=== PATIENT | male | born 1965 | race Caucasian/White ===

== ENCOUNTER 2016-11-19 01:27 | Emergency (ER) | payer BC, OTHER ==
[2016-11-19] MEDS ORDERED: ASPIRIN 81 MG CHEW TABLET As Ordered ONE (01:50)
[2016-11-19] MEDS ORDERED: MORPHINE 4 MG/ML 1ML SYRINGE As Ordered ONE (02:01)
[2016-11-19] MEDS ORDERED: METOPROLOL TART 25 MG TABLET As Ordered ONE (02:01)
[2016-11-19 02:05] LABS: INR 0.94
[2016-11-19 02:08] LABS: BASO % 0.2 % (0.0-1.0); EOS # 0.1 K/mm3 (0.0-0.50); EOS % 2.5 % (0.0-3.0); LARGE UNSTAINED CELL # 0.1 K/mm3 (0.0-0.4); LARGE UNSTAINED CELL % 1.9 % (0.0-4.0); LYMPH # 1.3 K/mm3 (1.5-4.5); LYMPH % 22.3 % (24.0-44.0); MEAN CORPUSCULAR HEMOGLOBIN 27.2 pg (27.0-33.0); MEAN CORPUSCULAR HGB CONC 33.9 g/dl (32.0-36.5); MEAN CORPUSCULAR VOLUME 80.2 fl (80.0-96.0); MONO # 0.3 K/mm3 (0.0-0.8); NEUTROPHILS # 3.9 K/mm3 (1.8-7.7); PLATELET COUNT, AUTOMATED 230 k/mm3 (150-450); RED CELL DISTRIBUTION WIDTH 13.3 % (11.5-14.5); WHITE BLOOD COUNT 5.7 K/mm3 (4.0-10.0)
[2016-11-19 02:13] LABS: ANION GAP 10 MEQ/L (8-16); BLOOD UREA NITROGEN 15 MG/DL (7-18); CALCIUM LEVEL 8.7 MG/DL (8.5-10.1); CARBON DIOXIDE LEVEL 28 MEQ/L (21-32); CHLORIDE LEVEL 102 MEQ/L (98-107); GLOMERULAR FILTRATION RATE > 60.0 (>56); GLUCOSE, FASTING 337 MG/DL (70-105); POTASSIUM SERUM 4.2 MEQ/L (3.5-5.1); SODIUM LEVEL 140 MEQ/L (136-145)
[2016-11-19] MEDS ORDERED: HEPARIN SOD (PORCINE) 5000 UNITS/ML VIAL As Ordered ONE (02:51)
[2016-11-19] MEDS ORDERED: HEPARIN 25,000 UNITS/250 ML D5W BAG (100 UNITS/ML) As Ordered ONE (02:52)
[2016-11-19] MEDS ORDERED: CLOPIDOGREL 300 MG TAB (PLAVIX) As Ordered ONE (02:52)
[2016-11-19] MEDS ORDERED: NITROGLYCERIN 2% OINT 1 GM *U/D* PKT As Ordered ONE (03:09)
--- NOTE | 2016-11-19 03:48 | EDDOCDS ---
Nurse's Notes [facility] Name: Holger Levine Age: 51 yrs Sex: Male : 1965 Arrival Date: 11/19/2016 Time: 01:27 Bed 2 Private MD: Diagnosis: Non-ST elevation (NSTEMI) myocardial infarction Presentation: 11/19 01:31 Presenting complaint: Patient states: Has been experiencing midsternal chest pain for a kmg1 couple of weeks. Became worse yesterday and has not really let up. Aspirin was not taken prior to arrival. Suicide/Homicide risk assessment- the patient denies having any suicidal and/or homicidal ideations and does not present with any other emotional, behavioral or mental health complaints. 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 Transition of care: patient was not received from another setting of care. 01:31 Acuity: EDWARD Level 2 km 01:31 Method Of Arrival: Walkin/Carried/[place] [facility] [place] 03:47 Adult Sepsis Screening: The patient does not have new or worsening altered mentation. af2 Patient's respiratory rate is less than 22. Systolic blood pressure is greater than 100. Patient has a qSOFA score of 0- Negative Sepsis Screen. Triage Assessment: 01:35 General: Appears in no apparent distress, comfortable, Behavior is appropriate for age, kmg1 cooperative, pleasant. Pain: Location: mid-sternal area Pain currently is 6 out of 10 on a pain scale. Quality of pain is described as burning. Cardiovascular: Rhythm is sinus rhythm No ectopy. Chest pain is described as Pain is 6 out of 10 on a pain scale. quality is burning, is located in substernal area radiates to right episodes are continuous began weeks. Respiratory: Airway is patent Respiratory effort is even, unlabored, Respiratory pattern is regular, symmetrical. 03:47 Pt Declines HIV testing. af2 Historical: - Allergies: No known drug Allergies; - Home Meds: 1. Aleve 220 mg Oral tab 1 tab every 12 hours (Last dose: 11/18/2016 20:00) 2. Tums Oral 1 tab as needed (Last dose: 11/18/2016 23:30) - PMHx: none; - PSHx: Appendectomy; - Social history: Smoking status: Patient states former smoker of tobacco. No barriers to communication noted, The patient speaks fluent Arabic, Speaks appropriately for age. - Family history: Not pertinent. - : The pt / caregiver states he / she is not on anticoagulants. Home medication list is obtained from the patient. - Exposure Risk Screening:: None identified. Screenin:48 Screening information is obtained from the patient. Fall risk: No risks identified. af2 Assistance ADL's: requires no assistance with activities of daily living. Abuse/DV Screen: The patient / caregiver reports he/she is: not in a situation that causes fear, pain or injury. Nutritional screening: No deficits noted. Advance Directives: Currently, there is no health care proxy. home support is adequate. Assessment: 01:47 General: Appears in no apparent distress, comfortable, Behavior is appropriate for age, af2 cooperative. Neurological: Level of Consciousness is awake, alert, obeys commands. Cardiovascular: Capillary refill < 3 seconds in bilateral fingers Heart tones S1 S2 present Rhythm is sinus rhythm No ectopy. Respiratory: Airway is patent Respiratory effort is even, unlabored, Reports no respiratory complaints. Derm: Skin is intact, is healthy with good turgor, Skin is normal. 02:45 General: Appears in no apparent distress, comfortable, Behavior is appropriate for age, af2 cooperative, pt reports pain free at this time. . Neurological: Level of Consciousness is awake, alert, obeys commands, Oriented to person, place, time. Cardiovascular: Rhythm is sinus rhythm No ectopy. Respiratory: Airway is patent Respiratory effort is even, unlabored. Derm: Skin is intact, is healthy with good turgor, Skin is normal. 03:45 General: Appears in no apparent distress, comfortable, Behavior is appropriate for age, af2 cooperative. Neurological: Level of Consciousness is awake, alert, obeys commands, Oriented to person, place, time. Cardiovascular: Capillary refill < 3 seconds in bilateral fingers Heart tones S1 S2 present Rhythm is sinus rhythm No ectopy. Respiratory: Airway is patent Respiratory effort is even, unlabored. Derm: Skin is intact, is healthy with good turgor, Skin is normal. Vital Signs: 01:33 BP 153 / 93 (auto/); af2 01:35 BP 153 / 93; Pulse 81; Resp 18; Pulse Ox 98% on R/A; Weight 131.54 kg (R); Height 6 ft. kmg1 0 in. (182.88 cm) (R); Pain 6/10; 01:37 Pulse 81 MON; Pulse Ox 97% ; af2 02:00 BP 135 / 84 (auto/); af2 02:01 Pulse 80 MON; Resp 18 S; Pulse Ox 93% on R/A; af2 02:15 BP 137 / 91 (auto/); af2 02:16 Pulse 77 MON; Resp 18 S; Pulse Ox 98% on 2 lpm NC; af2 02:30 BP 145 / 91 (auto/); af2 02:31 Pulse 76 MON; Resp 18 S; Pulse Ox 98% on 2 lpm NC; af2 02:45 BP 138 / 82 (auto/); af2 02:46 Pulse 76 MON; Resp 18 S; Pulse Ox 98% on 2 lpm NC; af2 02:51 BP 141 / 86 (auto/); af2 02:52 Pulse 76 MON; Resp 18 S; Pulse Ox 96% on 2 lpm NC; af2 03:00 BP 144 / 92 (auto/); af2 03:01 Pulse 83 MON; Resp 18 S; Pulse Ox 98% on 2 lpm NC; af2 03:15 BP 140 / 88 (auto/); af2 03:16 Pulse 83 MON; Resp 18; af2 03:46 BP 110 / 63 RA Sitting (auto/); Pulse 82; Resp 18 S; Temp 97.9(TE); Pulse Ox 97% on 2 af2 lpm NC; Pain 0/10; 01:35 Body Mass Index 39.33 (131.54 kg, 182.88 cm) [facility] [place] Vitals: 01:35 Log In Time: November 19, 2016 at 01:35. [facility] [place] ED Course: 01:28 Patient visited by Lisa Campos, Reg. hs2 01:28 Patient moved to Waiting hs2 01:31 Jessica Barrera RN is Primary Nurse. kmg1 01:31 Patient moved to 2 km 01:33 Triage Initiated [facility] [place] 01:45 Hilario Murillo DO is Attending Physician. cs11 01:45 Patient visited by Hilario Murillo DO. cs11 01:45 Patient visited by An Yee, Topography Technician. jlm 01:45 EKG done. (by ED staff). Reviewed by Hilario Murillo DO. jlm 01:48 Patient visited by Jessica Barrera RN. af2 01:48 The patient / caregiver is instructed regarding the plan of care and ED course. Cardiac af2 monitor on. Pulse ox on. NIBP on. 01:48 Inserted saline lock: 18 gauge in left antecubital area and blood collected. The af2 patient tolerated the procedure well. No procedures done that require assistance. 01:52 CBC with Diff Sent. af2 01:52 MED Profile Sent. af2 01:52 Cardiac Marker Panel Sent. af2 01:52 Pt & Aptt Sent. af2 02:09 O2 via nasal cannula \T\ 2L/min. af2 02:10 Patient visited by Jessica Barrera RN. af2 02:43 Patient visited by Jessica Barrera RN. af2 03:22 Patient name changed from Holger\S\F\S\Khurram\S\ to Holger\S\Gerardo\S\Khurram. EDMS 03:25 Patient visited by Jessica Barrera RN. af2 03:26 [facility] Payment Agreement was scanned into [employer] and attached to record. hs2 03:28 Patient visited by Jessica Barrera RN. af2 03:29 Patient name changed from Hloger\S\Gerardo\S\Khurram\S\ to Holger\S\Gerardo\S\Julianna. EDMS Administered Medications: 01:52 Drug: Aspirin 324 mg [aspirin 81 mg chewable tablet (4 tabs)] Route: PO; af2 02:11 Drug: morphine 4 mg [morphine 4 mg/mL intravenous cartridge (1 mL)] Route: IVP; Site: af2 left antecubital; 03:07 Follow up: Response: Pain is decreased af2 02:11 Drug: Metoprolol 25 mg [metoprolol tartrate 25 mg tablet (1 tabs)] Route: PO; af2 03:06 Follow up: Response: No Adverse Reaction af2 02:57 Drug: heparin (Thrombolytic Protocol, 60 units/kg)) 4000 units [heparin (porcine) 5,000 af2 unit/mL injection solution (0.8 mL)] {Co-Signature: sls1 (Gris Matta RN).} Route: IVP; Site: left antecubital; 03:02 Drug: Plavix - Clopidogrel 300 mg [clopidogrel 75 mg tablet (4 tabs)] Route: PO; af2 03:07 Follow up: Response: No Adverse Reaction af2 03:02 Drug: heparin (Thrombolytic Protocol, 12 units/kg/hr)) 22644 units [heparin (porcine) af2 25,000 unit/250 mL (100 unit/mL) in dextrose 5 % IV] {Co-Signature: sls1 (Gris Matta RN).} Route: IV; Rate: 1000 units/hr; Site: left antecubital; 03:13 Drug: Nitro-Bid 1 inches [Nitro-Bid 2 % transdermal ointment (1 inches)] Route: af2 Transdermal; Site: anterior chest wall; Order Results: Lab Order: CBC with Diff; SPEC'M 11/19/16 01:42 Test: WHITE BLOOD COUNT; Value: 5.7; Range: 4.0-10.0; Units: K/mm3; Status: F Test: RED BLOOD COUNT; Value: 5.49; Range: 4.30-6.10; Units: M/mm3; Status: F Test: HEMOGLOBIN; Value: 14.9; Range: 14.0-18.0; Units: g/dl; Status: F Test: HEMATOCRIT; Value: 44.0; Range: 42.0-52.0; Units: %; Status: F Test: MEAN CORPUSCULAR VOLUME; Value: 80.2; Range: 80.0-96.0; Units: fl; Status: F Test: MEAN CORPUSCULAR HEMOGLOBIN; Value: 27.2; Range: 27.0-33.0; Units: pg; Status: F Test: MEAN CORPUSCULAR HGB CONC; Value: 33.9; Range: 32.0-36.5; Units: g/dl; Status: F Test: RED CELL DISTRIBUTION WIDTH; Value: 13.3; Range: 11.5-14.5; Units: %; Status: F Test: PLATELET COUNT, AUTOMATED; Value: 230; Range: 150-450; Units: k/mm3; Status: F Test: NEUTROPHILS %; Value: 68.0; Range: 36.0-66.0; Abnormal: Above high normal; Units: %; Status: F Test: LYMPH %; Value: 22.3; Range: 24.0-44.0; Abnormal: Below low normal; Units: %; Status: F Test: MONO %; Value: 5.0; Range: 0.0-5.0; Units: %; Status: F Test: EOS %; Value: 2.5; Range: 0.0-3.0; Units: %; Status: F Test: BASO %; Value: 0.2; Range: 0.0-1.0; Units: %; Status: F Test: LARGE UNSTAINED CELL %; Value: 1.9; Range: 0.0-4.0; Units: %; Status: F Test: NEUTROPHILS #; Value: 3.9; Range: 1.8-7.7; Units: K/mm3; Status: F Test: LYMPH #; Value: 1.3; Range: 1.5-4.5; Abnormal: Below low normal; Units: K/mm3; Status: F Test: MONO #; Value: 0.3; Range: 0.0-0.8; Units: K/mm3; Status: F Test: EOS #; Value: 0.1; Range: 0.0-0.50; Units: K/mm3; Status: F Test: BASO #; Value: 0.0; Range: 0.0-0.2; Units: K/mm3; Status: F Test: LARGE UNSTAINED CELL #; Value: 0.1; Range: 0.0-0.4; Units: K/mm3; Status: F Lab Order: MED Profile; [facility]' 11/19/16 01:42 Test: GLUCOSE, FASTING; Value: 337; Range: 70-105; Abnormal: Above high normal; Units: MG/DL; Status: F Test: BLOOD UREA NITROGEN; Value: 15; Range: 7-18; Units: MG/DL; Status: F Test: CREATININE FOR GFR; Value: 0.90; Range: 0.70-1.30; Units: MG/DL; Status: F Test: GLOMERULAR FILTRATION RATE; Value: > 60.0; Range: >56; Status: F Test: SODIUM LEVEL; Value: 140; Range: 136-145; Units: MEQ/L; Status: F Test: POTASSIUM SERUM; Value: 4.2; Range: 3.5-5.1; Units: MEQ/L; Status: F Test: CHLORIDE LEVEL; Value: 102; Range: 98-107; Units: MEQ/L; Status: F Test: CARBON DIOXIDE LEVEL; Value: 28; Range: 21-32; Units: MEQ/L; Status: F Test: ANION GAP; Value: 10; Range: 8-16; Units: MEQ/L; Status: F Test: CALCIUM LEVEL; Value: 8.7; Range: 8.5-10.1; Units: MG/DL; Status: F Test Note: ; Units are mL/min/1.73 m2 Chronic Kidney Disease Staging per NKF: Stage I & II GFR >=60 Normal to Mildly Decreased Stage III GFR 30-59 Moderately Decreased Stage IV GFR 15-29 Severely Decreased Stage V GFR <15 Very Little GFR Left ESRD GFR <15 on [employer] Lab Order: Cardiac Marker Panel; SPEC11/19/16 01:42 Test: CPK CREATINE PHOSPHOKINASE; Value: 238; Range: 39-308; Units: U/L; Status: F Test: CK-MB VALUE MASS; Value: 12.8; Range: 0.0-3.6; Abnormal: Above high normal; Units: NG/ML; Status: F Test: MB/CK RELATIVE INDEX; Value: 5.37; Range: < OR =4; Abnormal: Above high normal; Status: F Test: TROPONIN I; Value: 1.13; Range: < 0.10; Abnormal: Above high normal; Units: NG/ML; Status: F Test Note: ; DIAGNOSIS CRITERIA MMB ng/ml Relative Index (RI) NON-AMI < or = 5 N/A SCHILLING ZONE > 5 < or = 4 AMI > 5 > 4 Lab Order: Pt & Aptt; SPEC11/19/16 01:42 Test: PROTHROMBIN TIME; Value: 12.7; Range: 12.3-14.5; Units: SECONDS; Status: F Test: INR; Value: 0.94; Status: F Test: PARTIAL THROMBOPLASTIN TIME; Value: 27.0; Range: 26.6-37.1; Units: SECONDS; Status: F Test Note: ; THERAPUTIC HUMAN INR VALUES INDICATIONS NORMAL RANGES PROPHYLAXIS/TREATMENT OF: VENOUS THROMBOSIS 2.0-3.0 PULMONARY EMBOLISM 2.0-3.0 PREVENTION OF SYSTEMIC EMBOLISM FROM: TISSUE HEART VALVES 2.0-3.0 ACUTE MYOCARDIAL INFARCTION 2.0-3.0 VALVULAR HEART DISEASE 2.0-3.0 ATRIAL FIBRILLATION 2.0-3.0 MECHANICAL VALVES(HIGH RISK) 2.5-3.5 RECURRENT MYOCARDIAL INFARCTION 2.5-3.5 Outcome: 03:06 ER care complete, transfer ordered by Provider. cs11 03:46 Discharge Assessment: Patient awake, alert and oriented x 3. No cognitive and/or af2 functional deficits noted. Patient verbalized understanding of disposition instructions. patient administered narcotics - yes. Patient was admitted to the hospital or transferred to another facility. The following High Risk Discharge criteria are identified: None. Transferred to [facility]. by EMS ground [employer] ambulance report to accompanying personnel Mook Diane and Anthony Moore. Condition: stable. No special radiology studies were completed. Property :Personal belongings accompany Pt. 03:48 Patient left the ED. af2 Signatures: Dispatcher [employer] EDMS Aubree Mcallister RN RN kmg1 Hilario Murillo, DO cs11 An Yee, Topography Technician Unit Jessica Mitchell RN RN af2 Lisa Campos, Reg Reg hs2 Gris Matta RN sls1 [facility]
--- NOTE | 2016-11-19 03:48 | EDDOCDS ---
Physician Documentation [facility] Name: Holger Levine Age: 51 yrs Sex: Male : 1965 Arrival Date: 11/19/2016 Time: 01:27 Bed 2 Private MD: Disposition: 11/19/16 03:06 Transfer ordered to [facility]. Diagnosis is Non-ST elevation (NSTEMI) myocardial infarction. - Reason for transfer: Higher level of care. - Accepting physician is Dr Dial. - Condition is Stable. - Problem is new. - Symptoms have improved. Historical: - Allergies: No known drug Allergies; - Home Meds: 1. Aleve 220 mg Oral tab 1 tab every 12 hours (Last dose: 11/18/2016 20:00) 2. Tums Oral 1 tab as needed (Last dose: 11/18/2016 23:30) - PMHx: none; - PSHx: Appendectomy; - Social history: Smoking status: Patient states former smoker of tobacco. No barriers to communication noted, The patient speaks fluent Angolan, Speaks appropriately for age. - Family history: Not pertinent. - : The pt / caregiver states he / she is not on anticoagulants. Home medication list is obtained from the patient. - Exposure Risk Screening:: None identified. Vital Signs: 11/19 01:33 BP 153 / 93 (auto/); af2 01:35 BP 153 / 93; Pulse 81; Resp 18; Pulse Ox 98% on R/A; Weight 131.54 kg / 290 lbs (R); kmg1 Height 6 ft. 0 in. (182.88 cm) (R); Pain 6/10; 01:37 Pulse 81 MON; Pulse Ox 97% ; af2 02:00 BP 135 / 84 (auto/); af2 02:01 Pulse 80 MON; Resp 18 S; Pulse Ox 93% on R/A; af2 02:15 BP 137 / 91 (auto/); af2 02:16 Pulse 77 MON; Resp 18 S; Pulse Ox 98% on 2 lpm NC; af2 02:30 BP 145 / 91 (auto/); af2 02:31 Pulse 76 MON; Resp 18 S; Pulse Ox 98% on 2 lpm NC; af2 02:45 BP 138 / 82 (auto/); af2 02:46 Pulse 76 MON; Resp 18 S; Pulse Ox 98% on 2 lpm NC; af2 02:51 BP 141 / 86 (auto/); af2 02:52 Pulse 76 MON; Resp 18 S; Pulse Ox 96% on 2 lpm NC; af2 03:00 BP 144 / 92 (auto/); af2 03:01 Pulse 83 MON; Resp 18 S; Pulse Ox 98% on 2 lpm NC; af2 03:15 BP 140 / 88 (auto/); af2 03:16 Pulse 83 MON; Resp 18; af2 03:46 BP 110 / 63 RA Sitting (auto/); Pulse 82; Resp 18 S; Temp 97.9(TE); Pulse Ox 97% on 2 af2 lpm NC; Pain 0/10; 01:35 Body Mass Index 39.33 (131.54 kg, 182.88 cm) km MDM: 01:39 ECG WITH READING ER PHYS+CARDIAG ordered. EDMS 01:47 Aspirin 324 mg PO once ordered. cs11 01:47 IV Saline Lock ordered. cs11 01:48 Chest, 1 View Ordered. EDMS 01:49 CBC with Diff Ordered. EDMS 01:49 MED Profile Ordered. EDMS 01:49 Cardiac Marker Panel Ordered. EDMS 01:49 Pt & Aptt Ordered. EDMS 01:58 morphine 4 mg IVP once ordered. cs11 01:58 Metoprolol (Tartrate) 25 mg PO once ordered. cs11 01:58 Oxygen 2L via NC, titrate to maintain PO >95% ordered. cs11 02:46 CBC with Diff Reviewed. cs11 02:46 MED Profile Reviewed. cs11 02:46 Cardiac Marker Panel Reviewed. cs11 02:46 Pt & Aptt Reviewed. cs11 02:48 Plavix - Clopidogrel 300 mg PO once ordered. cs11 02:49 heparin (Thrombolytic Protocol, 60 units/kg)) 4000 units IVP once; max 4000 units. cs11 Ensure no Lovenox in past 18hr, labs drawn ordered. 02:49 heparin (Thrombolytic Protocol, 12 units/kg/hr)) 51298 units IV at 1000 units/hr once; cs11 Max. dose 1000units/hr. No Lovenox past 18hrs/ draw labs. ordered. 03:05 Nitro-Bid Ointment 2 % 1 inches Transdermal once ordered. cs11 03:16 Financial registration complete. hs2 03:26 [facility] Payment Agreement was scanned into [employer] and attached to record. hs2 Administered Medications: 01:52 Drug: Aspirin 324 mg [aspirin 81 mg chewable tablet (4 tabs)] Route: PO; af2 02:11 Drug: morphine 4 mg [morphine 4 mg/mL intravenous cartridge (1 mL)] Route: IVP; Site: af2 left antecubital; 03:07 Follow up: Response: Pain is decreased af2 02:11 Drug: Metoprolol 25 mg [metoprolol tartrate 25 mg tablet (1 tabs)] Route: PO; af2 03:06 Follow up: Response: No Adverse Reaction af2 02:57 Drug: heparin (Thrombolytic Protocol, 60 units/kg)) 4000 units [heparin (porcine) 5,000 af2 unit/mL injection solution (0.8 mL)] {Co-Signature: mamta (Gris Matta RN).} Route: IVP; Site: left antecubital; 03:02 Drug: Plavix - Clopidogrel 300 mg [clopidogrel 75 mg tablet (4 tabs)] Route: PO; af2 03:07 Follow up: Response: No Adverse Reaction af2 03:02 Drug: heparin (Thrombolytic Protocol, 12 units/kg/hr)) 88960 units [heparin (porcine) af2 25,000 unit/250 mL (100 unit/mL) in dextrose 5 % IV] {Co-Signature: mamta (Gris Matta RN).} Route: IV; Rate: 1000 units/hr; Site: left antecubital; 03:13 Drug: Nitro-Bid 1 inches [Nitro-Bid 2 % transdermal ointment (1 inches)] Route: af2 Transdermal; Site: anterior chest wall; Signatures: Dispatcher [employer] EDMS Aubree Mcallister RN RN kmg1 Hilario Murillo DO DO cs11 Jessica Barrera RN RN af2 Lisa Campos, Reg Reg hs2 Gris Matta RN sls1 The chart was reviewed and I authenticate all verbal orders and agree with the evaluation and treatment provided.Attachments: 03:26 [facility] Payment Agreement hs2 MTDD
--- NOTE | 2016-11-19 07:20 | REP ---
Clinical: Chest pain. Comparison: None. Findings: Mediastinum and cardiac silhouette normal lung barrios clear no acute consolidation, effusion, or pneumothorax skeletal structures intact. Impression: No acute cardiopulmonary process. Signed by Jeffery Johnson MD 11/19/2016 07:12 A
--- NOTE | 2016-11-19 07:30 | ECGEPIP ---
Stationary ECG Study [facility] - ED Test Date: 2016-11-19 Pat Name: ELADIO SOLORZANO Department: Room: - Gender: M Group Tester: farhan : 1965 Requested By: FRANCOIS CRABTREE Order Number: [id number] Reading MD: Yo Yadav Measurements Intervals [place] Rate: 82 P: 19 DC: 181 QRS: 23 QRSD: 118 T: -15 QT: 384 QTc: 450 Interpretive Statements SINUS RHYTHM MODERATE INTRAVENTRICULAR CONDUCTION DELAY PRIOR INFERIOR INFARCT NO PRIORS Electronically Signed On 11-19-2016 7:30:19 EST by Yo Yadav
--- NOTE | 2016-11-21 04:49 | EDDOCDS ---
Physician Documentation [facility] Name: Holger Levine Age: 51 yrs Sex: Male : 1965 Arrival Date: 11/19/2016 Time: 01:27 Bed 2 Private MD: Disposition: 11/19/16 03:06 Transfer ordered to [facility]. Diagnosis is Non-ST elevation (NSTEMI) myocardial infarction. - Reason for transfer: Higher level of care. - Accepting physician is Dr Dial. - Condition is Stable. - Problem is new. - Symptoms have improved. Historical: - Allergies: No known drug Allergies; - Home Meds: 1. Aleve 220 mg Oral tab 1 tab every 12 hours (Last dose: 11/18/2016 20:00) 2. Tums Oral 1 tab as needed (Last dose: 11/18/2016 23:30) - PMHx: none; - PSHx: Appendectomy; - Social history: Smoking status: Patient states former smoker of tobacco. No barriers to communication noted, The patient speaks fluent [place], Speaks appropriately for age. - Family history: Not pertinent. - : The pt / caregiver states he / she is not on anticoagulants. Home medication list is obtained from the patient. - Exposure Risk Screening:: None identified. Vital Signs: 11/19 01:33 BP 153 / 93 (auto/); af2 01:35 BP 153 / 93; Pulse 81; Resp 18; Pulse Ox 98% on R/A; Weight 131.54 kg / 290 lbs (R); kmg1 Height 6 ft. 0 in. (182.88 cm) (R); Pain 6/10; 01:37 Pulse 81 MON; Pulse Ox 97% ; af2 02:00 BP 135 / 84 (auto/); af2 02:01 Pulse 80 MON; Resp 18 S; Pulse Ox 93% on R/A; af2 02:15 BP 137 / 91 (auto/); af2 02:16 Pulse 77 MON; Resp 18 S; Pulse Ox 98% on 2 lpm NC; af2 02:30 BP 145 / 91 (auto/); af2 02:31 Pulse 76 MON; Resp 18 S; Pulse Ox 98% on 2 lpm NC; af2 02:45 BP 138 / 82 (auto/); af2 02:46 Pulse 76 MON; Resp 18 S; Pulse Ox 98% on 2 lpm NC; af2 02:51 BP 141 / 86 (auto/); af2 02:52 Pulse 76 MON; Resp 18 S; Pulse Ox 96% on 2 lpm NC; af2 03:00 BP 144 / 92 (auto/); af2 03:01 Pulse 83 MON; Resp 18 S; Pulse Ox 98% on 2 lpm NC; af2 03:15 BP 140 / 88 (auto/); af2 03:16 Pulse 83 MON; Resp 18; af2 03:46 BP 110 / 63 RA Sitting (auto/); Pulse 82; Resp 18 S; Temp 97.9(TE); Pulse Ox 97% on 2 af2 lpm NC; Pain 0/10; 01:35 Body Mass Index 39.33 (131.54 kg, 182.88 cm) km MDM: 01:39 ECG WITH READING ER PHYS+CARDIAG ordered. EDMS 01:47 Aspirin 324 mg PO once ordered. cs11 01:47 IV Saline Lock ordered. cs11 01:48 Chest, 1 View Ordered. EDMS 01:49 CBC with Diff Ordered. EDMS 01:49 MED Profile Ordered. EDMS 01:49 Cardiac Marker Panel Ordered. EDMS 01:49 Pt & Aptt Ordered. EDMS 01:58 morphine 4 mg IVP once ordered. cs11 01:58 Metoprolol (Tartrate) 25 mg PO once ordered. cs11 01:58 Oxygen 2L via NC, titrate to maintain PO >95% ordered. cs11 02:46 CBC with Diff Reviewed. cs11 02:46 MED Profile Reviewed. cs11 02:46 Cardiac Marker Panel Reviewed. cs11 02:46 Pt & Aptt Reviewed. cs11 02:48 Plavix - Clopidogrel 300 mg PO once ordered. cs11 02:49 heparin (Thrombolytic Protocol, 60 units/kg)) 4000 units IVP once; max 4000 units. cs11 Ensure no Lovenox in past 18hr, labs drawn ordered. 02:49 heparin (Thrombolytic Protocol, 12 units/kg/hr)) 30407 units IV at 1000 units/hr once; cs11 Max. dose 1000units/hr. No Lovenox past 18hrs/ draw labs. ordered. 03:05 Nitro-Bid Ointment 2 % 1 inches Transdermal once ordered. cs11 03:16 Financial registration complete. hs2 03:26 [facility] Payment Agreement was scanned into [employer] and attached to record. hs2 Administered Medications: 01:52 Drug: Aspirin 324 mg [aspirin 81 mg chewable tablet (4 tabs)] Route: PO; af2 02:11 Drug: morphine 4 mg [morphine 4 mg/mL intravenous cartridge (1 mL)] Route: IVP; Site: af2 left antecubital; 03:07 Follow up: Response: Pain is decreased af2 02:11 Drug: Metoprolol 25 mg [metoprolol tartrate 25 mg tablet (1 tabs)] Route: PO; af2 03:06 Follow up: Response: No Adverse Reaction af2 02:57 Drug: heparin (Thrombolytic Protocol, 60 units/kg)) 4000 units [heparin (porcine) 5,000 af2 unit/mL injection solution (0.8 mL)] {Co-Signature: mamta (Gris Matta RN).} Route: IVP; Site: left antecubital; 03:02 Drug: Plavix - Clopidogrel 300 mg [clopidogrel 75 mg tablet (4 tabs)] Route: PO; af2 03:07 Follow up: Response: No Adverse Reaction af2 03:02 Drug: heparin (Thrombolytic Protocol, 12 units/kg/hr)) 60702 units [heparin (porcine) af2 25,000 unit/250 mL (100 unit/mL) in dextrose 5 % IV] {Co-Signature: mamta (Gris Matta RN).} Route: IV; Rate: 1000 units/hr; Site: left antecubital; 03:13 Drug: Nitro-Bid 1 inches [Nitro-Bid 2 % transdermal ointment (1 inches)] Route: af2 Transdermal; Site: anterior chest wall; Signatures: Dispatcher [employer] EDMS Aubree Mcallister RN RN kmg1 Hilario Murillo DO DO cs11 Jessica Barrera RN RN af2 Lisa Campos, Reg Reg hs2 Gris Matta RN sls1 The chart was reviewed and I authenticate all verbal orders and agree with the evaluation and treatment provided.Attachments: 03:26 [facility] Payment Agreement hs2 Chart Complete MTDD
--- NOTE | 2016-11-21 04:49 | EDDOCDS ---
Nurse's Notes [facility] Name: Holger Levine Age: 51 yrs Sex: Male : 1965 Arrival Date: 11/19/2016 Time: 01:27 Bed 2 Private MD: Diagnosis: Non-ST elevation (NSTEMI) myocardial infarction Presentation: 11/19 01:31 Presenting complaint: Patient states: Has been experiencing midsternal chest pain for a kmg1 couple of weeks. Became worse yesterday and has not really let up. Aspirin was not taken prior to arrival. Suicide/Homicide risk assessment- the patient denies having any suicidal and/or homicidal ideations and does not present with any other emotional, behavioral or mental health complaints. Status: Patient is not a financial services officer or dependent. Transition of care: patient was not received from another setting of care. 01:31 Acuity: EDWARD Level 2 km 01:31 Method Of Arrival: [facility] [place] [place] 03:47 Adult Sepsis Screening: The patient does not have new or worsening altered mentation. af2 Patient's respiratory rate is less than 22. Systolic blood pressure is greater than 100. Patient has a qSOFA score of 0- Negative Sepsis Screen. Triage Assessment: 01:35 General: Appears in no apparent distress, comfortable, Behavior is appropriate for age, kmg1 cooperative, pleasant. Pain: Location: mid-sternal area Pain currently is 6 out of 10 on a pain scale. Quality of pain is described as burning. Cardiovascular: Rhythm is sinus rhythm No ectopy. Chest pain is described as Pain is 6 out of 10 on a pain scale. quality is burning, is located in substernal area radiates to right episodes are continuous began weeks. Respiratory: Airway is patent Respiratory effort is even, unlabored, Respiratory pattern is regular, symmetrical. 03:47 Pt Declines HIV testing. af2 Historical: - Allergies: No known drug Allergies; - Home Meds: 1. Aleve 220 mg Oral tab 1 tab every 12 hours (Last dose: 11/18/2016 20:00) 2. Tums Oral 1 tab as needed (Last dose: 11/18/2016 23:30) - PMHx: none; - PSHx: Appendectomy; - Social history: Smoking status: Patient states former smoker of tobacco. No barriers to communication noted, The patient speaks fluent Maltese, Speaks appropriately for age. - Family history: Not pertinent. - : The pt / caregiver states he / she is not on anticoagulants. Home medication list is obtained from the patient. - Exposure Risk Screening:: None identified. Screenin:48 Screening information is obtained from the patient. Fall risk: No risks identified. af2 Assistance ADL's: requires no assistance with activities of daily living. Abuse/DV Screen: The patient / caregiver reports he/she is: not in a situation that causes fear, pain or injury. Nutritional screening: No deficits noted. Advance Directives: Currently, there is no health care proxy. home support is adequate. Assessment: 01:47 General: Appears in no apparent distress, comfortable, Behavior is appropriate for age, af2 cooperative. Neurological: Level of Consciousness is awake, alert, obeys commands. Cardiovascular: Capillary refill < 3 seconds in bilateral fingers Heart tones S1 S2 present Rhythm is sinus rhythm No ectopy. Respiratory: Airway is patent Respiratory effort is even, unlabored, Reports no respiratory complaints. Derm: Skin is intact, is healthy with good turgor, Skin is normal. 02:45 General: Appears in no apparent distress, comfortable, Behavior is appropriate for age, af2 cooperative, pt reports pain free at this time. . Neurological: Level of Consciousness is awake, alert, obeys commands, Oriented to person, place, time. Cardiovascular: Rhythm is sinus rhythm No ectopy. Respiratory: Airway is patent Respiratory effort is even, unlabored. Derm: Skin is intact, is healthy with good turgor, Skin is normal. 03:45 General: Appears in no apparent distress, comfortable, Behavior is appropriate for age, af2 cooperative. Neurological: Level of Consciousness is awake, alert, obeys commands, Oriented to person, place, time. Cardiovascular: Capillary refill < 3 seconds in bilateral fingers Heart tones S1 S2 present Rhythm is sinus rhythm No ectopy. Respiratory: Airway is patent Respiratory effort is even, unlabored. Derm: Skin is intact, is healthy with good turgor, Skin is normal. Vital Signs: 01:33 BP 153 / 93 (auto/); af2 01:35 BP 153 / 93; Pulse 81; Resp 18; Pulse Ox 98% on R/A; Weight 131.54 kg (R); Height 6 ft. kmg1 0 in. (182.88 cm) (R); Pain 6/10; 01:37 Pulse 81 MON; Pulse Ox 97% ; af2 02:00 BP 135 / 84 (auto/); af2 02:01 Pulse 80 MON; Resp 18 S; Pulse Ox 93% on R/A; af2 02:15 BP 137 / 91 (auto/); af2 02:16 Pulse 77 MON; Resp 18 S; Pulse Ox 98% on 2 lpm NC; af2 02:30 BP 145 / 91 (auto/); af2 02:31 Pulse 76 MON; Resp 18 S; Pulse Ox 98% on 2 lpm NC; af2 02:45 BP 138 / 82 (auto/); af2 02:46 Pulse 76 MON; Resp 18 S; Pulse Ox 98% on 2 lpm NC; af2 02:51 BP 141 / 86 (auto/); af2 02:52 Pulse 76 MON; Resp 18 S; Pulse Ox 96% on 2 lpm NC; af2 03:00 BP 144 / 92 (auto/); af2 03:01 Pulse 83 MON; Resp 18 S; Pulse Ox 98% on 2 lpm NC; af2 03:15 BP 140 / 88 (auto/); af2 03:16 Pulse 83 MON; Resp 18; af2 03:46 BP 110 / 63 RA Sitting (auto/); Pulse 82; Resp 18 S; Temp 97.9(TE); Pulse Ox 97% on 2 af2 lpm NC; Pain 0/10; 01:35 Body Mass Index 39.33 (131.54 kg, 182.88 cm) [facility] [place] Vitals: 01:35 Log In Time: November 19, 2016 at 01:35. [facility] [place] [facility] ED Course: 01:28 Patient visited by Lisa Campos, Reg. hs2 01:28 Patient moved to Waiting hs2 01:31 Jessica Barrera RN is Primary Nurse. kmg1 01:31 Patient moved to 2 km 01:33 Triage Initiated [facility] [place] 01:45 Hilario Crabtree DO is Attending Physician. cs11 01:45 Patient visited by Hilario Crabtree DO. cs11 01:45 Patient visited by An Yee, Rivet Tosser. jlm 01:45 EKG done. (by ED staff). Reviewed by Hilario Crabtree DO. jlm 01:48 Patient visited by Jessica Barrera RN. af2 01:48 The patient / caregiver is instructed regarding the plan of care and ED course. Cardiac af2 monitor on. Pulse ox on. NIBP on. 01:48 Inserted saline lock: 18 gauge in left antecubital area and blood collected. The af2 patient tolerated the procedure well. No procedures done that require assistance. 01:52 CBC with Diff Sent. af2 01:52 MED Profile Sent. af2 01:52 Cardiac Marker Panel Sent. af2 01:52 Pt & Aptt Sent. af2 02:09 O2 via nasal cannula \T\ 2L/min. af2 02:10 Patient visited by Jessica Barrera RN. af2 02:43 Patient visited by Jessica Barrera RN. af2 03:22 Patient name changed from Holger\S\F\S\Khurram\S\ to Holger\S\Gerardo\S\Khurram. EDMS 03:25 Patient visited by Jessica Barrera RN. af2 03:26 [facility] Payment Agreement was scanned into [employer] and attached to record. hs2 03:28 Patient visited by Jessica Barrera RN. af2 03:29 Patient name changed from Holger\S\Gerardo\S\Khurram\S\ to Holger\S\Gerardo\S\Julianna. EDMS 07:31 EKG-ADULT Returned. EDMS 07:34 Chest, 1 View Returned. EDMS Administered Medications: 01:52 Drug: Aspirin 324 mg [aspirin 81 mg chewable tablet (4 tabs)] Route: PO; af2 02:11 Drug: morphine 4 mg [morphine 4 mg/mL intravenous cartridge (1 mL)] Route: IVP; Site: af2 left antecubital; 03:07 Follow up: Response: Pain is decreased af2 02:11 Drug: Metoprolol 25 mg [metoprolol tartrate 25 mg tablet (1 tabs)] Route: PO; af2 03:06 Follow up: Response: No Adverse Reaction af2 02:57 Drug: heparin (Thrombolytic Protocol, 60 units/kg)) 4000 units [heparin (porcine) 5,000 af2 unit/mL injection solution (0.8 mL)] {Co-Signature: sls1 (Gris Matta RN).} Route: IVP; Site: left antecubital; 03:02 Drug: Plavix - Clopidogrel 300 mg [clopidogrel 75 mg tablet (4 tabs)] Route: PO; af2 03:07 Follow up: Response: No Adverse Reaction af2 03:02 Drug: heparin (Thrombolytic Protocol, 12 units/kg/hr)) 26962 units [heparin (porcine) af2 25,000 unit/250 mL (100 unit/mL) in dextrose 5 % IV] {Co-Signature: sls1 (Gris Matta RN).} Route: IV; Rate: 1000 units/hr; Site: left antecubital; 03:13 Drug: Nitro-Bid 1 inches [Nitro-Bid 2 % transdermal ointment (1 inches)] Route: af2 Transdermal; Site: anterior chest wall; Order Results: Lab Order: CBC with Diff; SPEC'M 11/19/16 01:42 Test: WHITE BLOOD COUNT; Value: 5.7; Range: 4.0-10.0; Units: K/mm3; Status: F Test: RED BLOOD COUNT; Value: 5.49; Range: 4.30-6.10; Units: M/mm3; Status: F Test: HEMOGLOBIN; Value: 14.9; Range: 14.0-18.0; Units: g/dl; Status: F Test: HEMATOCRIT; Value: 44.0; Range: 42.0-52.0; Units: %; Status: F Test: MEAN CORPUSCULAR VOLUME; Value: 80.2; Range: 80.0-96.0; Units: fl; Status: F Test: MEAN CORPUSCULAR HEMOGLOBIN; Value: 27.2; Range: 27.0-33.0; Units: pg; Status: F Test: MEAN CORPUSCULAR HGB CONC; Value: 33.9; Range: 32.0-36.5; Units: g/dl; Status: F Test: RED CELL DISTRIBUTION WIDTH; Value: 13.3; Range: 11.5-14.5; Units: %; Status: F Test: PLATELET COUNT, AUTOMATED; Value: 230; Range: 150-450; Units: k/mm3; Status: F Test: NEUTROPHILS %; Value: 68.0; Range: 36.0-66.0; Abnormal: Above high normal; Units: %; Status: F Test: LYMPH %; Value: 22.3; Range: 24.0-44.0; Abnormal: Below low normal; Units: %; Status: F Test: MONO %; Value: 5.0; Range: 0.0-5.0; Units: %; Status: F Test: EOS %; Value: 2.5; Range: 0.0-3.0; Units: %; Status: F Test: BASO %; Value: 0.2; Range: 0.0-1.0; Units: %; Status: F Test: LARGE UNSTAINED CELL %; Value: 1.9; Range: 0.0-4.0; Units: %; Status: F Test: NEUTROPHILS #; Value: 3.9; Range: 1.8-7.7; Units: K/mm3; Status: F Test: LYMPH #; Value: 1.3; Range: 1.5-4.5; Abnormal: Below low normal; Units: K/mm3; Status: F Test: MONO #; Value: 0.3; Range: 0.0-0.8; Units: K/mm3; Status: F Test: EOS #; Value: 0.1; Range: 0.0-0.50; Units: K/mm3; Status: F Test: BASO #; Value: 0.0; Range: 0.0-0.2; Units: K/mm3; Status: F Test: LARGE UNSTAINED CELL #; Value: 0.1; Range: 0.0-0.4; Units: K/mm3; Status: F Lab Order: [facility] Profile; [facility]' 11/19/16 01:42 Test: GLUCOSE, FASTING; Value: 337; Range: 70-105; Abnormal: Above high normal; Units: MG/DL; Status: F Test: BLOOD UREA NITROGEN; Value: 15; Range: 7-18; Units: MG/DL; Status: F Test: CREATININE FOR GFR; Value: 0.90; Range: 0.70-1.30; Units: MG/DL; Status: F Test: GLOMERULAR FILTRATION RATE; Value: > 60.0; Range: >56; Status: F Test: SODIUM LEVEL; Value: 140; Range: 136-145; Units: MEQ/L; Status: F Test: POTASSIUM SERUM; Value: 4.2; Range: 3.5-5.1; Units: MEQ/L; Status: F Test: CHLORIDE LEVEL; Value: 102; Range: 98-107; Units: MEQ/L; Status: F Test: CARBON DIOXIDE LEVEL; Value: 28; Range: 21-32; Units: MEQ/L; Status: F Test: ANION GAP; Value: 10; Range: 8-16; Units: MEQ/L; Status: F Test: CALCIUM LEVEL; Value: 8.7; Range: 8.5-10.1; Units: MG/DL; Status: F Test Note: ; Units are mL/min/1.73 m2 Chronic Kidney Disease Staging per NKF: Stage I & II GFR >=60 Normal to Mildly Decreased Stage III GFR 30-59 Moderately Decreased Stage IV GFR 15-29 Severely Decreased Stage V GFR <15 Very Little GFR Left ESRD GFR <15 on CLINICAL PHARMACOLOGIST Lab Order: Cardiac Marker Panel; SPEC'M 11/19/16 01:42 Test: CPK CREATINE PHOSPHOKINASE; Value: 238; Range: 39-308; Units: U/L; Status: F Test: CK-MB VALUE MASS; Value: 12.8; Range: 0.0-3.6; Abnormal: Above high normal; Units: NG/ML; Status: F Test: MB/CK RELATIVE INDEX; Value: 5.37; Range: < OR =4; Abnormal: Above high normal; Status: F Test: TROPONIN I; Value: 1.13; Range: < 0.10; Abnormal: Above high normal; Units: NG/ML; Status: F Test Note: ; DIAGNOSIS CRITERIA MMB ng/ml Relative Index (RI) NON-AMI < or = 5 N/A SCHILLING ZONE > 5 < or = 4 AMI > 5 > 4 Lab Order: Pt & Aptt; SPEC'M 11/19/16 01:42 Test: PROTHROMBIN TIME; Value: 12.7; Range: 12.3-14.5; Units: SECONDS; Status: F Test: INR; Value: 0.94; Status: F Test: PARTIAL THROMBOPLASTIN TIME; Value: 27.0; Range: 26.6-37.1; Units: SECONDS; Status: F Test Note: ; THERAPUTIC HUMAN INR VALUES INDICATIONS NORMAL RANGES PROPHYLAXIS/TREATMENT OF: VENOUS THROMBOSIS 2.0-3.0 PULMONARY EMBOLISM 2.0-3.0 PREVENTION OF SYSTEMIC EMBOLISM FROM: TISSUE HEART VALVES 2.0-3.0 ACUTE MYOCARDIAL INFARCTION 2.0-3.0 VALVULAR HEART DISEASE 2.0-3.0 ATRIAL FIBRILLATION 2.0-3.0 MECHANICAL VALVES(HIGH RISK) 2.5-3.5 RECURRENT MYOCARDIAL INFARCTION 2.5-3.5 Radiology Order: EKG-ADULT Test: EKG-ADULT REASON FOR EXAMINATION: Chest Pain; Stationary ECG Study; 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; : 1965 Requested By: HILARIO CRABTREE; Order Number: [id number] Reading MD: Yo Yadav; Measurements; Intervals Alger; Rate: 82 P: 19; NC: 181 QRS: 23; QRSD: 118 T: -15; QT: 384; QTc: 450; Interpretive Statements; SINUS RHYTHM; MODERATE INTRAVENTRICULAR CONDUCTION DELAY; PRIOR INFERIOR INFARCT; NO PRIORS; Electronically Signed On 11-19-2016 7:30:19 EST by Yo Yadav; Radiology Order: Chest, 1 View Test: Chest, 1 View REASON FOR EXAMINATION: Chest Pain; Clinical: Chest pain.; ; Comparison: None.; ; Findings: Mediastinum and cardiac silhouette normal lung barrios clear no acute; consolidation, effusion, or pneumothorax skeletal structures intact.; ; Impression:; No acute cardiopulmonary process.; ; ; Signed by; Jeffery Johnson MD 11/19/2016 07:12 A; Outcome: 03:06 ER care complete, transfer ordered by Provider. cs11 03:46 Discharge Assessment: Patient awake, alert and oriented x 3. No cognitive and/or af2 functional deficits noted. Patient verbalized understanding of disposition instructions. patient administered narcotics - yes. Patient was admitted to the hospital or transferred to another facility. The following High Risk Discharge criteria are identified: None. [facility] to accompanying personnel Mook Diane and Anthony Moore. Condition: stable. No special radiology studies were completed. Property :Personal belongings accompany Pt. 03:48 Patient left the ED. af2 Signatures: Dispatcher [facility] Martin RN RN [facility] [place] Hilario Crabtree, DO DO cs11 An Yee, Rivet Tosser Unit Jessica Mitchell RN RN af2 Lisa Campos, Reg Reg hs2 Gris Matta RN sls1 Chart Complete MTDD
--- NOTE | 2016-11-21 04:49 | EDDOCDS ---
Physician Documentation [facility] Name: Holger Levine Age: 51 yrs Sex: Male : 1965 Arrival Date: 11/19/2016 Time: 01:27 Bed 2 Private MD: Disposition: 11/19/16 03:06 Transfer ordered to [facility]. Diagnosis is Non-ST elevation (NSTEMI) myocardial infarction. - Reason for transfer: Higher level of care. - Accepting physician is Dr Dial. - Condition is Stable. - Problem is new. - Symptoms have improved. Historical: - Allergies: No known drug Allergies; - Home Meds: 1. Aleve 220 mg Oral tab 1 tab every 12 hours (Last dose: 11/18/2016 20:00) 2. Tums Oral 1 tab as needed (Last dose: 11/18/2016 23:30) - PMHx: none; - PSHx: Appendectomy; - Social history: Smoking status: Patient states former smoker of tobacco. No barriers to communication noted, The patient speaks fluent Gabonese, Speaks appropriately for age. - Family history: Not pertinent. - : The pt / caregiver states he / she is not on anticoagulants. Home medication list is obtained from the patient. - Exposure Risk Screening:: None identified. Vital Signs: 11/19 01:33 BP 153 / 93 (auto/); af2 01:35 BP 153 / 93; Pulse 81; Resp 18; Pulse Ox 98% on R/A; Weight 131.54 kg / 290 lbs (R); kmg1 Height 6 ft. 0 in. (182.88 cm) (R); Pain 6/10; 01:37 Pulse 81 MON; Pulse Ox 97% ; af2 02:00 BP 135 / 84 (auto/); af2 02:01 Pulse 80 MON; Resp 18 S; Pulse Ox 93% on R/A; af2 02:15 BP 137 / 91 (auto/); af2 02:16 Pulse 77 MON; Resp 18 S; Pulse Ox 98% on 2 lpm NC; af2 02:30 BP 145 / 91 (auto/); af2 02:31 Pulse 76 MON; Resp 18 S; Pulse Ox 98% on 2 lpm NC; af2 02:45 BP 138 / 82 (auto/); af2 02:46 Pulse 76 MON; Resp 18 S; Pulse Ox 98% on 2 lpm NC; af2 02:51 BP 141 / 86 (auto/); af2 02:52 Pulse 76 MON; Resp 18 S; Pulse Ox 96% on 2 lpm NC; af2 03:00 BP 144 / 92 (auto/); af2 03:01 Pulse 83 MON; Resp 18 S; Pulse Ox 98% on 2 lpm NC; af2 03:15 BP 140 / 88 (auto/); af2 03:16 Pulse 83 MON; Resp 18; af2 03:46 BP 110 / 63 RA Sitting (auto/); Pulse 82; Resp 18 S; Temp 97.9(TE); Pulse Ox 97% on 2 af2 lpm NC; Pain 0/10; 01:35 Body Mass Index 39.33 (131.54 kg, 182.88 cm) km MDM: 01:39 ECG WITH READING ER PHYS+CARDIAG ordered. EDMS 01:47 Aspirin 324 mg PO once ordered. cs11 01:47 IV Saline Lock ordered. cs11 01:48 Chest, 1 View Ordered. EDMS 01:49 CBC with Diff Ordered. EDMS 01:49 MED Profile Ordered. EDMS 01:49 Cardiac Marker Panel Ordered. EDMS 01:49 Pt & Aptt Ordered. EDMS 01:58 morphine 4 mg IVP once ordered. cs11 01:58 Metoprolol (Tartrate) 25 mg PO once ordered. cs11 01:58 Oxygen 2L via NC, titrate to maintain PO >95% ordered. cs11 02:46 CBC with Diff Reviewed. cs11 02:46 MED Profile Reviewed. cs11 02:46 Cardiac Marker Panel Reviewed. cs11 02:46 Pt & Aptt Reviewed. cs11 02:48 Plavix - Clopidogrel 300 mg PO once ordered. cs11 02:49 heparin (Thrombolytic Protocol, 60 units/kg)) 4000 units IVP once; max 4000 units. cs11 Ensure no Lovenox in past 18hr, labs drawn ordered. 02:49 heparin (Thrombolytic Protocol, 12 units/kg/hr)) 10278 units IV at 1000 units/hr once; cs11 Max. dose 1000units/hr. No Lovenox past 18hrs/ draw labs. ordered. 03:05 Nitro-Bid Ointment 2 % 1 inches Transdermal once ordered. cs11 03:16 Financial registration complete. hs2 03:26 [facility] Payment Agreement was scanned into [employer] and attached to record. hs2 Administered Medications: 01:52 Drug: Aspirin 324 mg [aspirin 81 mg chewable tablet (4 tabs)] Route: PO; af2 02:11 Drug: morphine 4 mg [morphine 4 mg/mL intravenous cartridge (1 mL)] Route: IVP; Site: af2 left antecubital; 03:07 Follow up: Response: Pain is decreased af2 02:11 Drug: Metoprolol 25 mg [metoprolol tartrate 25 mg tablet (1 tabs)] Route: PO; af2 03:06 Follow up: Response: No Adverse Reaction af2 02:57 Drug: heparin (Thrombolytic Protocol, 60 units/kg)) 4000 units [heparin (porcine) 5,000 af2 unit/mL injection solution (0.8 mL)] {Co-Signature: mamta (Gris Matta RN).} Route: IVP; Site: left antecubital; 03:02 Drug: Plavix - Clopidogrel 300 mg [clopidogrel 75 mg tablet (4 tabs)] Route: PO; af2 03:07 Follow up: Response: No Adverse Reaction af2 03:02 Drug: heparin (Thrombolytic Protocol, 12 units/kg/hr)) 62703 units [heparin (porcine) af2 25,000 unit/250 mL (100 unit/mL) in dextrose 5 % IV] {Co-Signature: mamta (Gris Matta RN).} Route: IV; Rate: 1000 units/hr; Site: left antecubital; 03:13 Drug: Nitro-Bid 1 inches [Nitro-Bid 2 % transdermal ointment (1 inches)] Route: af2 Transdermal; Site: anterior chest wall; Signatures: Dispatcher [employer] EDMS Aubree Mcallister RN RN kmg1 Hilario Murillo DO DO cs11 Jessica Barrera RN RN af2 Lisa Campos, Reg Reg hs2 Gris Matta RN sls1 The chart was reviewed and I authenticate all verbal orders and agree with the evaluation and treatment provided.Attachments: 03:26 [facility] Payment Agreement hs2 Chart Complete MTDD
== END 2016-11-19 03:42 | disposition short-term general hospital (02) ==
LOC: M ED 01:27
DX: I21.4 Non-ST elevation (NSTEMI) myocardial infarction (principal); Z87.891 Personal history of nicotine dependence

== ENCOUNTER → 2017-02-17 | Outpatient (REF) | payer BC ==
[2017-02-17 13:18] LABS: ALBUMIN 3.9 GM/DL (3.2-5.2); ALBUMIN/GLOBULIN RATIO 1.34 (1.00-1.93); ALKALINE PHOSPHATASE 73 U/L (45-117); ALT/SGPT 40 U/L (12-78); ANION GAP 7 MEQ/L (8-16); AST/SGOT 25 U/L (15-37); BILIRUBIN,TOTAL 0.6 MG/DL (0.2-1.0); BLOOD UREA NITROGEN 19 MG/DL (7-18); CALCIUM LEVEL 9.1 MG/DL (8.5-10.1); CARBON DIOXIDE LEVEL 27 MEQ/L (21-32); CHLORIDE LEVEL 108 MEQ/L (98-107); CREATININE FOR GFR 0.76 MG/DL (0.70-1.30); GLOMERULAR FILTRATION RATE > 60.0 (>56); GLUCOSE, FASTING 112 MG/DL (70-105); SODIUM LEVEL 142 MEQ/L (136-145); TOTAL PROTEIN 6.8 GM/DL (6.4-8.2)
== END ==
LOC: M SFHCPLAZ 07:42
PROVIDERS: ATTEND Family Medicine
DX: E11.9 Type 2 diabetes mellitus without complications (principal)

== ENCOUNTER → 2017-02-22 | Outpatient (CLI) | payer BC ==
--- NOTE | 2017-02-22 10:32 | REP ---
Clinical: Acute on chronic pain. Technique: AP, lateral, bilateral oblique and sunrise views of the right Knee. Findings: Moderate tricompartmental osteoarthritic degenerative changes are appreciated. Findings include increased sclerosis to the tibial plateau and posterior margin of the patella, cortical irregularity to the femoral condyles, early spurring/osteophyte formation along the anterior and medial tibial plateau and lateral patellar margins, as well as medial tibiofemoral and patellofemoral joint space narrowing. Subtle element of chondrocalcinosis in the medial joint space is also suggested. No acute fracture or dislocation. No obvious effusion. 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 Signed by Jeffery Johnson MD 02/22/2017 10:23 A
== END ==
LOC: M SMT 08:06
PROVIDERS: ATTEND Family Medicine
DX: M25.562 Pain in left knee (principal); G89.29 Other chronic pain

== ENCOUNTER → 2017-03-22 | Outpatient (REF) | payer BC | LOC: M SFHCPLAZ 07:43 | PROVIDERS: ATTEND Family Medicine | DX: N52.9 Male erectile dysfunction, unspecified (principal) ==

== ENCOUNTER → 2017-05-24 | Outpatient (REF) | payer BC | LOC: M SFHCPLAZ 07:43 | PROVIDERS: ATTEND Family Medicine | DX: E11.9 Type 2 diabetes mellitus without complications (principal) ==

== ENCOUNTER → 2017-08-24 | Outpatient (REF) | payer BC ==
[2017-08-24 13:33] LABS: ALBUMIN 4.2 GM/DL (3.2-5.2); ALBUMIN/GLOBULIN RATIO 1.27 (1.00-1.93); ALKALINE PHOSPHATASE 62 U/L (45-117); ALT/SGPT 36 U/L (12-78); ANION GAP 7 MEQ/L (8-16); AST/SGOT 16 U/L (7-37); BILIRUBIN,TOTAL 0.4 MG/DL (0.2-1.0); BLOOD UREA NITROGEN 18 MG/DL (7-18); CARBON DIOXIDE LEVEL 28 MEQ/L (21-32); CHLORIDE LEVEL 108 MEQ/L (98-107); CREATININE FOR GFR 0.85 MG/DL (0.70-1.30); GLOMERULAR FILTRATION RATE > 60.0 (>56); GLUCOSE, FASTING 112 MG/DL (70-105); POTASSIUM SERUM 4.2 MEQ/L (3.5-5.1); SODIUM LEVEL 143 MEQ/L (136-145); TOTAL PROTEIN 7.5 GM/DL (6.4-8.2)
== END ==
LOC: M SFHCPLAZ 08:03
PROVIDERS: ATTEND Family Medicine
DX: E11.9 Type 2 diabetes mellitus without complications (principal)

== ENCOUNTER → 2017-10-13 | Outpatient (REF) | payer BC ==
[2017-10-13 13:13] LABS: ALBUMIN 4.1 GM/DL (3.2-5.2); ALBUMIN/GLOBULIN RATIO 1.17 (1.00-1.93); ALKALINE PHOSPHATASE 85 U/L (45-117); ALT/SGPT 21 U/L (12-78); AST/SGOT 15 U/L (7-37); BILIRUBIN,DIRECT < 0.1 MG/DL (0.0-0.2); BILIRUBIN,TOTAL 0.5 MG/DL (0.2-1.0); TOTAL PROTEIN 7.6 GM/DL (6.4-8.2)
== END ==
LOC: M SFHCPLAZ 07:54
DX: Z51.81 Encounter for therapeutic drug level monitoring (principal); Z79.899 Other long term (current) drug therapy
CPT/HCPCS: 80076

== ENCOUNTER → 2017-12-11 | Outpatient (REF) | payer BC ==
[2017-12-11 12:39] LABS: ESTIMATED AVERAGE GLUCOSE 177 MG/DL (60-110); HEMOGLOBIN A1c 7.8 %
== END ==
LOC: M SFHCPLAZ 09:29
DX: E11.9 Type 2 diabetes mellitus without complications (principal)
CPT/HCPCS: 83036

== ENCOUNTER → 2018-03-19 | Outpatient (REF) | payer BC ==
[2018-03-19 14:03] LABS: ANION GAP 6 MEQ/L (8-16); BLOOD UREA NITROGEN 16 MG/DL (7-18); CALCIUM LEVEL 7.8 MG/DL (8.5-10.1); CARBON DIOXIDE LEVEL 28 MEQ/L (21-32); CHLORIDE LEVEL 111 MEQ/L (98-107); CREATININE FOR GFR 0.76 MG/DL (0.70-1.30); GLOMERULAR FILTRATION RATE > 60.0 (>56); GLUCOSE, FASTING 130 MG/DL (70-100); POTASSIUM SERUM 4.1 MEQ/L (3.5-5.1); SODIUM LEVEL 145 MEQ/L (136-145)
[2018-03-19 16:06] LABS: ESTIMATED AVERAGE GLUCOSE 163 MG/DL (60-110); HEMOGLOBIN A1c 7.3 %
== END ==
LOC: M SFHCPLAZ 07:56
DX: E11.9 Type 2 diabetes mellitus without complications (principal)
CPT/HCPCS: 83036

== ENCOUNTER 2018-05-09 06:56 | Day surgery (SDC) | payer BC ==
[~2018-05-09 06:56] MED LIST: NS 1,000 ML IV
[2018-05-09] MEDS ORDERED: PROPOFOL 200 MG/20 ML VIAL As Ordered (07:15)
[2018-05-09] MEDS ORDERED: LIDOCAINE 2% INJ 100 MG/5 ML SDV (FOR ANES.) As Ordered (07:15)
== END 2018-05-09 08:35 | disposition home or self-care (01) ==
LOC: M OPP 06:56
DX: Z12.11 Encounter for screening for malignant neoplasm of colon (principal); K64.9 Unspecified hemorrhoids; I11.9 Hypertensive heart disease without heart failure; E11.9 Type 2 diabetes mellitus without complications; E78.00 Pure hypercholesterolemia, unspecified; K21.9 Gastro-esophageal reflux disease without esophagitis; I51.9 Heart disease, unspecified; Z79.82 Long term (current) use of aspirin; Z79.84 Long term (current) use of oral hypoglycemic drugs; Z79.899 Other long term (current) drug therapy; Z86.74 Personal history of sudden cardiac arrest; Z95.5 Presence of coronary angioplasty implant and graft; Z87.891 Personal history of nicotine dependence; Z80.3 Family history of malignant neoplasm of breast; Z80.0 Family history of malignant neoplasm of digestive organs
CPT/HCPCS: 45378

== ENCOUNTER → 2018-10-31 | Outpatient (REF) | payer BC ==
[~2018-10-31] MED LIST changes: +ASPI1CHW2; +ATOR40TA75; +GLIP2.5T6; +LISI2.5T5; +METF10004; +METO1TAB87; -NS 1,000 ML IV; +OMEP40CA2; +SILD1TAB8
[2018-10-31 10:20] LABS: MAU/CREAT RATIO 5.5 MCG/MG (0.0-30.0)
[2018-10-31 10:36] LABS: HEMOGLOBIN A1c 8.7 %
== END ==
LOC: M SFHCPLAZ 08:00
PROVIDERS: ATTEND Family Medicine
DX: E11.9 Type 2 diabetes mellitus without complications (principal)

== ENCOUNTER → 2019-02-20 | Outpatient (REF) | payer BC ==
[~2019-02-20] MED LIST changes: +LISI-1046; -LISI2.5T5
[2019-02-20 11:20] LABS: HEMOGLOBIN A1c 8.3 %
== END ==
LOC: M SFHCPLAZ 07:40
PROVIDERS: ATTEND Family Medicine
DX: E11.9 Type 2 diabetes mellitus without complications (principal)

== ENCOUNTER → 2019-05-23 | Outpatient (REF) | payer BC ==
[2019-05-23 11:22] LABS: BLOOD UREA NITROGEN 23 MG/DL (7-18); CARBON DIOXIDE LEVEL 26 MEQ/L (21-32); CHLORIDE LEVEL 108 MEQ/L (98-107); CREATININE FOR GFR 0.88 MG/DL (0.70-1.30); GLOMERULAR FILTRATION RATE > 60.0 (>56); GLUCOSE, FASTING 106 MG/DL (70-100); POTASSIUM SERUM 3.9 MEQ/L (3.5-5.1); SODIUM LEVEL 141 MEQ/L (136-145)
[2019-05-23 11:47] LABS: HEMOGLOBIN A1c 6.8 %
== END ==
LOC: M SFHCPLAZ 07:43
PROVIDERS: ATTEND Family Medicine
DX: E11.9 Type 2 diabetes mellitus without complications (principal); I25.10 Atherosclerotic heart disease of native coronary artery without angina pectoris

== ENCOUNTER → 2019-11-19 | Outpatient (REF) | payer BC ==
[~2019-11-19] MED LIST changes: -OMEP40CA2; +OMEP40CA97
[2019-11-19 10:40] LABS: BLOOD UREA NITROGEN 17 MG/DL (7-18); CARBON DIOXIDE LEVEL 25 MEQ/L (21-32); CHLORIDE LEVEL 105 MEQ/L (98-107); GLOMERULAR FILTRATION RATE > 60.0 (>56); GLUCOSE, FASTING 321 MG/DL (70-100); POTASSIUM SERUM 4.3 MEQ/L (3.5-5.1); SODIUM LEVEL 138 MEQ/L (136-145)
== END ==
LOC: M SFHCPLAZ 08:15
PROVIDERS: ATTEND Family Medicine
DX: E11.9 Type 2 diabetes mellitus without complications (principal); I25.10 Atherosclerotic heart disease of native coronary artery without angina pectoris

== ENCOUNTER → 2020-05-20 | Outpatient (CLI) | payer BC ==
[~2020-05-20] MED LIST changes: -LISI-1046; +LISI2.5T2
[2020-05-20 11:01] LABS: BLOOD UREA NITROGEN 22 MG/DL (7-18); CALCIUM LEVEL 9.1 MG/DL (8.5-10.1); CARBON DIOXIDE LEVEL 29 MEQ/L (21-32); CHLORIDE LEVEL 107 MEQ/L (98-107); CREATININE FOR GFR 1.04 MG/DL (0.70-1.30); GLOMERULAR FILTRATION RATE > 60.0 (>56); GLUCOSE, FASTING 182 MG/DL (70-100); POTASSIUM SERUM 4.5 MEQ/L (3.5-5.1); SODIUM LEVEL 142 MEQ/L (136-145)
[2020-05-20 11:25] LABS: HEMOGLOBIN A1c 8.4 %
[2020-05-20 11:40] LABS: MALB URINE SIEMENS 5.4 MG/L
== END ==
LOC: M PLALAB 08:01
PROVIDERS: ATTEND Family Medicine
DX: E11.9 Type 2 diabetes mellitus without complications (principal); E78.2 Mixed hyperlipidemia

== ENCOUNTER → 2020-09-16 | Outpatient (REF) | payer BC ==
[2020-09-16 10:54] LABS: CHOLESTEROL RISK RATIO 3.675 (<5)
[2020-09-16 11:50] LABS: HEMOGLOBIN A1c 10.5 %
== END ==
LOC: M SFHCPLAZ 08:04
PROVIDERS: ATTEND Family Medicine
DX: E11.9 Type 2 diabetes mellitus without complications (principal); I25.10 Atherosclerotic heart disease of native coronary artery without angina pectoris

== ENCOUNTER → 2020-11-02 | Outpatient (CLI) | payer BC ==
[2020-11-02 15:43] LABS: ALT/SGPT 46 U/L (12-78); BILIRUBIN,TOTAL 0.3 MG/DL (0.2-1.0); BLOOD UREA NITROGEN 19 MG/DL (7-18); CARBON DIOXIDE LEVEL 27 MEQ/L (21-32); CHLORIDE LEVEL 108 MEQ/L (98-107); CREATININE FOR GFR 0.83 MG/DL (0.70-1.30); GLOMERULAR FILTRATION RATE > 60.0 (>56); GLUCOSE, FASTING 127 MG/DL (70-100); POTASSIUM SERUM 4.6 MEQ/L (3.5-5.1); SODIUM LEVEL 142 MEQ/L (136-145); TOTAL PROTEIN 7.1 GM/DL (6.4-8.2)
== END ==
LOC: M PLALAB 11:12
PROVIDERS: ATTEND Nurse Practitioner Family
DX: E78.5 Hyperlipidemia, unspecified (principal); E11.9 Type 2 diabetes mellitus without complications; I25.10 Atherosclerotic heart disease of native coronary artery without angina pectoris

== ENCOUNTER → 2021-01-11 | Outpatient (REF) | payer BC ==
[2021-01-11 11:44] LABS: BLOOD UREA NITROGEN 26 MG/DL (7-18); CARBON DIOXIDE LEVEL 27 MEQ/L (21-32); CHLORIDE LEVEL 106 MEQ/L (98-107); CREATININE FOR GFR 0.77 MG/DL (0.70-1.30); GLOMERULAR FILTRATION RATE > 60.0 (>56); GLUCOSE, FASTING 172 MG/DL (70-100); POTASSIUM SERUM 4.7 MEQ/L (3.5-5.1); SODIUM LEVEL 140 MEQ/L (136-145)
[2021-01-11 11:45] LABS: CALCIUM LEVEL 9.8 MG/DL (8.5-10.1)
== END ==
LOC: M PLALAB 08:03
PROVIDERS: ATTEND Family Medicine
DX: E11.9 Type 2 diabetes mellitus without complications (principal)

== ENCOUNTER → 2021-05-25 | Outpatient (CLI) | payer BC ==
[~2021-05-25] MED LIST changes: -LISI2.5T2; +LISI2.5T9; +OMEP40CA4; -OMEP40CA97
[2021-05-25 17:36] LABS: BLOOD UREA NITROGEN 15 MG/DL (7-18); CARBON DIOXIDE LEVEL 26 MEQ/L (21-32); CHLORIDE LEVEL 110 MEQ/L (98-107); CREATININE FOR GFR 0.86 MG/DL (0.70-1.30); GLOMERULAR FILTRATION RATE > 60.0 (>56); GLUCOSE, FASTING 93 MG/DL (70-100); POTASSIUM SERUM 4.2 MEQ/L (3.5-5.1); SODIUM LEVEL 141 MEQ/L (136-145)
[2021-05-25 17:49] LABS: MALB URINE SIEMENS 11.6 MG/L; MAU/CREAT RATIO 6.8 MCG/MG (0.0-30.0)
[2021-05-25 21:26] LABS: HEMOGLOBIN A1c 7.7 %
== END ==
LOC: M PLALAB 14:30
PROVIDERS: ATTEND Family Medicine
DX: E11.9 Type 2 diabetes mellitus without complications (principal); I25.10 Atherosclerotic heart disease of native coronary artery without angina pectoris

== ENCOUNTER → 2021-05-26 | Outpatient (REF) | payer BC | LOC: M SMT 17:26 | PROVIDERS: ATTEND Urology | DX: Z30.2 Encounter for sterilization (principal) ==

== ENCOUNTER → 2021-08-06 | Outpatient (REF) | payer BC ==
[2021-08-06 13:14] LABS: SEMEN APPEARANCE OPAQUE (OPAQUE); SEMEN VISCOSITY LIQUID (LIQUID); SEMEN VOLUME 1.4 ml (2.0-5.0); SEMEN pH 8.5 (7.0-8.0); WBC CONCENTRATION <=1 M/ml (<=1 M/ml)
== END ==
LOC: M SMT 13:09
PROVIDERS: ATTEND Urology
DX: Z30.8 Encounter for other contraceptive management (principal)

== ENCOUNTER → 2021-11-16 | Outpatient (CLI) | payer BC ==
[2021-11-16 14:40] LABS: BLOOD UREA NITROGEN 19 MG/DL (7-18); CALCIUM LEVEL 9.2 MG/DL (8.5-10.1); CARBON DIOXIDE LEVEL 25 MEQ/L (21-32); CHLORIDE LEVEL 106 MEQ/L (98-107); CREATININE FOR GFR 0.93 MG/DL (0.70-1.30); GLOMERULAR FILTRATION RATE > 60.0 (>56); GLUCOSE, FASTING 141 MG/DL (70-100); POTASSIUM SERUM 4.7 MEQ/L (3.5-5.1); SODIUM LEVEL 141 MEQ/L (136-145)
[2021-11-16 14:48] LABS: HEMOGLOBIN A1c 7.9 %
== END ==
LOC: M PLALAB 09:22
PROVIDERS: ATTEND Family Medicine
DX: E11.9 Type 2 diabetes mellitus without complications (principal)

== ENCOUNTER 2022-04-15 11:57 | Emergency (ER) | payer BC ==
[~2022-04-15] VITALS: Ht 182.9 cm; Wt 134.0 kg
[2022-04-15 11:59] VITALS: BP 194/95
== END 2022-04-15 16:25 | disposition left against medical advice (07) ==
LOC: M ED 11:57
DX: Z53.21 Procedure and treatment not carried out due to patient leaving prior to being seen by health care provider (principal)

== ENCOUNTER → 2022-06-07 | Outpatient (CLI) | payer BC ==
[2022-06-07 11:52] LABS: HEMOGLOBIN A1c 7.4 %
[2022-06-07 12:03] LABS: ALT/SGPT 52 U/L (12-78); BILIRUBIN,TOTAL 0.4 MG/DL (0.2-1.0); BLOOD UREA NITROGEN 17 MG/DL (7-18); CALCIUM LEVEL 8.9 MG/DL (8.5-10.1); CARBON DIOXIDE LEVEL 26 MEQ/L (21-32); CHLORIDE LEVEL 107 MEQ/L (98-107); CHOLESTEROL LEVEL 146 MG/DL (<200); CHOLESTEROL RISK RATIO 4.171 (<5); CREATININE FOR GFR 0.88 MG/DL (0.70-1.30); GLOMERULAR FILTRATION RATE > 60.0 (>56); GLUCOSE, FASTING 195 MG/DL (70-100); HDL CHOLESTEROL 35 MG/DL (>40); LDL CHOLESTEROL 62 MG/DL (<100); NON-HDL-C 111 MG/DL; POTASSIUM SERUM 4.5 MEQ/L (3.5-5.1); SODIUM LEVEL 140 MEQ/L (136-145); TOTAL PROTEIN 7.1 GM/DL (6.4-8.2); TRIGLYCERIDES LEVEL 247 MG/DL (<150)
== END ==
LOC: M PLALAB 08:04
PROVIDERS: ATTEND Physician Assistant
DX: E11.9 Type 2 diabetes mellitus without complications (principal)

== ENCOUNTER → 2022-12-16 | Outpatient (CLI) | payer BC ==
[2022-12-16 11:10] LABS: BASO % 0.4 % (0.0-1.0); EOS # 0.4 10^3/uL (0.0-0.5); EOS % 4.9 % (0.0-3.0); HEMATOCRIT 47.2 % (42.0-52.0); HEMOGLOBIN 15.3 g/dl (13.5-17.5); LYMPH # 1.8 10^3/uL (1.5-5.0); LYMPH % 21.8 % (24.0-44.0); MEAN CORPUSCULAR HEMOGLOBIN 27.7 pg (27.0-33.0); MEAN CORPUSCULAR HGB CONC 32.4 g/dl (32.0-36.5); MEAN CORPUSCULAR VOLUME 85.4 fl (80.0-96.0); MONO # 0.6 10^3/uL (0.0-0.8); MONO % 6.9 % (2.0-8.0); NEUTROPHILS # 5.4 10^3/uL (1.5-8.5); NEUTROPHILS % 65.9 % (36.0-66.0); PLATELET COUNT, AUTOMATED 272 10^3/uL (150-450); RED BLOOD COUNT 5.53 10^6/uL (4.30-6.10); WHITE BLOOD COUNT 8.1 10^3/uL (4.0-10.0)
[2022-12-16 11:14] LABS: ALBUMIN 4.4 G/DL (3.2-5.2); ALKALINE PHOSPHATASE 84 U/L (46-116); ALT/SGPT 46 U/L (7.0-40); AST/SGOT 23 U/L (<34); BILIRUBIN,TOTAL 0.6 MG/DL (0.3-1.2); BLOOD UREA NITROGEN 22 MG/DL (9-23); CALCIUM LEVEL 9.3 MG/DL (8.5-10.1); CARBON DIOXIDE LEVEL 28 MMOL/L (20-31); CHLORIDE LEVEL 105 MMOL/L (98-107); CREATININE FOR GFR 0.77 MG/DL (0.70-1.30); GLOMERULAR FILTRATION RATE > 60.0 (>56); GLUCOSE, FASTING 124 MG/DL (60-100); POTASSIUM SERUM 4.7 MMOL/L (3.5-5.1); SODIUM LEVEL 141 MMOL/L (136-145); TOTAL PROTEIN 7.5 G/DL (5.7-8.2)
[2022-12-16 11:43] LABS: HEMOGLOBIN A1c 6.9 % (4.0-6.0)
== END ==
LOC: M PLALAB 07:43
PROVIDERS: ATTEND Physician Assistant
DX: Z12.5 Encounter for screening for malignant neoplasm of prostate (principal)
CPT/HCPCS: 36415; 80053; 83036; 85025; G0103

== ENCOUNTER → 2023-12-14 | Outpatient (CLI) | payer BC ==
[2023-12-14 10:49] LABS: BASO % 0.3 % (0.0-1.0); EOS # 0.4 10^3/uL (0.0-0.5); EOS % 5.9 % (0.0-3.0); HEMATOCRIT 43.6 % (42.0-52.0); HEMOGLOBIN 14.8 g/dl (13.5-17.5); LYMPH # 1.5 10^3/uL (1.5-5.0); LYMPH % 24.5 % (24.0-44.0); MEAN CORPUSCULAR HEMOGLOBIN 28.3 pg (27.0-33.0); MEAN CORPUSCULAR HGB CONC 33.9 g/dl (32.0-36.5); MEAN CORPUSCULAR VOLUME 83.4 fl (80.0-96.0); MONO # 0.5 10^3/uL (0.0-0.8); MONO % 7.5 % (2.0-8.0); NEUTROPHILS # 3.9 10^3/uL (1.5-8.5); NEUTROPHILS % 61.3 % (36.0-66.0); PLATELET COUNT, AUTOMATED 222 10^3/uL (150-450); RED BLOOD COUNT 5.23 10^6/uL (4.30-6.10); WHITE BLOOD COUNT 6.3 10^3/uL (4.0-10.0)
[2023-12-14 11:00] LABS: HEMOGLOBIN A1c 8.3 % (4.0-6.0)
[2023-12-14 11:24] LABS: PSA SCREENING 0.26 NG/ML (< 4.00)
[2023-12-14 11:25] LABS: ALBUMIN 4.1 G/DL (3.2-5.2); ALKALINE PHOSPHATASE 79 U/L (46-116); ALT/SGPT 43 U/L (7.0-40); AST/SGOT 18 U/L (<34); BILIRUBIN,TOTAL 0.6 MG/DL (0.3-1.2); BLOOD UREA NITROGEN 16 MG/DL (9-23); CALCIUM LEVEL 8.9 MG/DL (8.5-10.1); CARBON DIOXIDE LEVEL 28 MMOL/L (20-31); CHLORIDE LEVEL 109 MMOL/L (98-107); CHOLESTEROL LEVEL 115 MG/DL (<200); CHOLESTEROL RISK RATIO 4.32 (<5); GLOMERULAR FILTRATION RATE > 60.0 (>56); GLUCOSE, FASTING 277 MG/DL (60-100); HDL CHOLESTEROL 26.6 MG/DL (>40); LDL CHOLESTEROL 61.8 MG/DL (<100); NON-HDL-C 88.4 MG/DL; POTASSIUM SERUM 4.7 MMOL/L (3.5-5.1); SODIUM LEVEL 142 MMOL/L (136-145); TOTAL PROTEIN 6.9 G/DL (5.7-8.2); TRIGLYCERIDES LEVEL 133 MG/DL (<150)
[2023-12-14 11:30] LABS: FREE T4 1.08 NG/DL (0.89-1.76); THYROID STIMULATING HORMONE 1.464 uIU/ML (0.55-4.78)
== END ==
LOC: M PLALAB 07:45
PROVIDERS: ATTEND Physician Assistant
DX: E11.9 Type 2 diabetes mellitus without complications (principal); I25.10 Atherosclerotic heart disease of native coronary artery without angina pectoris; E78.00 Pure hypercholesterolemia, unspecified; N52.9 Male erectile dysfunction, unspecified
CPT/HCPCS: 36415; 80053; 80061; 83036; 84439; 84443; 85025; G0103

== ENCOUNTER → 2024-01-02 | Outpatient (CLI) | payer BC | LOC: M PLAIMG 13:53 | PROVIDERS: ATTEND Physician Assistant | DX: I25.10 Atherosclerotic heart disease of native coronary artery without angina pectoris (principal) ==

== ENCOUNTER → 2024-04-19 | Outpatient (CLI) | payer BC ==
[2024-04-19 12:23] LABS: HEMOGLOBIN A1c 6.1 % (4.0-6.0)
[2024-04-19 12:30] LABS: CREATININE, URINE 162.9 MG/DL
[2024-04-19 12:31] LABS: ALKALINE PHOSPHATASE 87 U/L (46-116); ALT/SGPT 45 U/L (7.0-40); AST/SGOT 18 U/L (<34); BILIRUBIN,TOTAL 0.7 MG/DL (0.3-1.2); BLOOD UREA NITROGEN 16 MG/DL (9-23); CALCIUM LEVEL 9.1 MG/DL (8.5-10.1); CARBON DIOXIDE LEVEL 28 MMOL/L (20-31); CHLORIDE LEVEL 109 MMOL/L (98-107); CREATININE FOR GFR 0.74 MG/DL (0.70-1.30); GLOMERULAR FILTRATION RATE > 60.0 (>56); GLUCOSE, FASTING 146 MG/DL (60-100); POTASSIUM SERUM 4.6 MMOL/L (3.5-5.1); SODIUM LEVEL 143 MMOL/L (136-145); TOTAL PROTEIN 6.7 G/DL (5.7-8.2)
== END ==
LOC: M PLALAB 08:15
PROVIDERS: ATTEND Physician Assistant
DX: E11.9 Type 2 diabetes mellitus without complications (principal)

== ENCOUNTER → 2024-10-22 | Outpatient (CLI) | payer BC | LOC: M PLALAB 07:51 | PROVIDERS: ATTEND Nurse Practitioner Family | DX: E11.9 Type 2 diabetes mellitus without complications (principal) ==

== ENCOUNTER → 2025-01-02 | Outpatient (CLI) | payer BC ==
[~2025-01-02] MED LIST changes: +GLIP2.5T46; -GLIP2.5T6
[2025-01-02 17:29] LABS: ALBUMIN 4.2 G/DL (3.2-5.2); ALKALINE PHOSPHATASE 84 U/L (40-129); ALT/SGPT 52 U/L (7.0-40); AST/SGOT 27 U/L (<34); BILIRUBIN,TOTAL 0.6 MG/DL (0.3-1.2); BLOOD UREA NITROGEN 18 MG/DL (9-23); CALCIUM LEVEL 9.7 MG/DL (8.5-10.1); CARBON DIOXIDE LEVEL 29 MMOL/L (20-31); CHLORIDE LEVEL 106 MMOL/L (98-107); CREATININE FOR GFR 0.71 MG/DL (0.70-1.30); GLOMERULAR FILTRATION RATE > 90.0 (>56); GLUCOSE, FASTING 71 MG/DL (60-100); POTASSIUM SERUM 4.5 MMOL/L (3.5-5.1); SODIUM LEVEL 143 MMOL/L (136-145); TOTAL PROTEIN 7.4 G/DL (5.7-8.2)
[2025-01-02 18:08] LABS: HEMOGLOBIN A1c 5.9 % (4.0-6.0)
== END ==
LOC: M PLALAB 14:46
PROVIDERS: ATTEND Nurse Practitioner Family
DX: E11.9 Type 2 diabetes mellitus without complications (principal)

== ENCOUNTER → 2025-07-07 | Outpatient (CLI) | payer BC ==
[2025-07-07 11:04] LABS: PSA SCREENING 0.32 NG/ML (< 4.00)
[2025-07-07 11:05] LABS: ALT/SGPT 48 U/L (7.0-40); AST/SGOT 23 U/L (<34); CALCIUM LEVEL 9.1 MG/DL (8.5-10.1); CARBON DIOXIDE LEVEL 26 MMOL/L (20-31); CHLORIDE LEVEL 107 MMOL/L (98-107); CHOLESTEROL LEVEL 132 MG/DL (<200); CHOLESTEROL RISK RATIO 4.03 (<5); CREATININE FOR GFR 0.78 MG/DL (0.70-1.30); GLOMERULAR FILTRATION RATE > 90.0 (>56); LDL CHOLESTEROL 79.5 MG/DL (<100); NON-HDL-C 99.3 MG/DL; POTASSIUM SERUM 4.4 MMOL/L (3.5-5.1); SODIUM LEVEL 143 MMOL/L (136-145); TRIGLYCERIDES LEVEL 99 MG/DL (<150)
[2025-07-07 11:33] LABS: ESTIMATED AVERAGE GLUCOSE 143.0 MG/DL (60-110)
== END ==
LOC: M PLALAB 07:56
PROVIDERS: ATTEND Nurse Practitioner Family
DX: I10 Essential (primary) hypertension (principal); E11.9 Type 2 diabetes mellitus without complications; Z12.5 Encounter for screening for malignant neoplasm of prostate; E78.00 Pure hypercholesterolemia, unspecified
CPT/HCPCS: 36415; 80053; 80061; 83036; G0103